=== PATIENT | female | born 1970 | race Caucasian/White ===

== ENCOUNTER 2018-04-21 15:52 | Emergency (ER) | payer OTHER ==
[~2018-04-21] VITALS: Ht 165.1 cm; Wt 90.7 kg
[2018-04-21] MEDS ORDERED: METFORMIN HCL500 MG PO (16:04)
[2018-04-21] MEDS ORDERED: COZAAR 25 MG TA25 MG PO (16:05)
[2018-04-21] MEDS ORDERED: ADDERALL 30 MG30 MG PO (16:05)
[2018-04-21] MEDS ORDERED: ZOLOFT50 MG PO (16:06)
[2018-04-21] MEDS ORDERED: HYDROCODONE-AP1 EAC6 PO (17:15)
[2018-04-21] MEDS ORDERED: ZOFRAN ODT4 MG DISSOLVE (18:15)
[2018-04-21 18:20] VITALS: BP 152/100
== END 2018-04-21 18:20 | disposition home or self-care (01) ==
LOC: M.ERS 15:52
DX: S82.64XA Nondisplaced fracture of lateral malleolus of right fibula, initial encounter for closed fracture (principal); F41.9 Anxiety disorder, unspecified; F90.9 Attention-deficit hyperactivity disorder, unspecified type; Z88.5 Allergy status to narcotic agent; Z88.8 Allergy status to other drugs, medicaments and biological substances; W00.0XXA Fall on same level due to ice and snow, initial encounter; Y93.89 Activity, other specified; Y92.89 Other specified places as the place of occurrence of the external cause; Y99.8 Other external cause status